=== PATIENT | male | born 1950 | race Caucasian/White ===

== ENCOUNTER 2020-08-20 13:06 | Emergency (ER) | payer MEDICARE ==
[2020-08-20 13:11] VITALS: BP 173/78; PULSE 87; RESP 20; TEMP 97.8
[2020-08-20] MEDS ORDERED: KETOROLAC 15 MG/ML 1 ML VIAL IM STA (13:58)
--- NOTE | 2020-08-20 14:31 | XR ---
Lumbar spine HISTORY: Pain 3 views of the lumbar spine Bone mineralization is reduced. Lumbar vertebral bodies show preserved height and near-anatomic align ment. Sclerosis is present in the posterior elements. Anterolisthesis grade 1 at L4-5. There is multi level spondylosis. Loss of disc height at intervertebral levels. I question some minimal depression o f the central superior endplate at L2. There are dense vascular calcifications present. IMPRESSION: Osteopenia, degenerative disc disease, facet arthropathy. Additional findings above.
--- NOTE | 2020-08-20 14:33 | XR ---
AP pelvis HISTORY: Chronic pain Single frontal view of the pelvis submitted Question increased density the right femoral head as compared to the left. There is some rotation how ever. Dense vascular calcifications are present. There is no fracture or dislocation. Joint spaces an d alignment are maintained. IMPRESSION: Findings may be technical involving the density of the femoral head, consider bone scan f or better evaluation as indicated.
--- NOTE | 2020-08-20 15:10 | ED ---
General Adult HPI - General Chief complaint: Extremity Injury, Lower Stated complaint: rt leg pain Time Seen by Provider: 08/20/20 13:18 Source: patient Mode of arrival: ambulatory Limitations: no limitations - History of Present Illness Initial comments: 69-year-old male with a past medical history of COPD, hypertension presents to the emergency room for a chief complaint of right leg pain. Patient reports that he has had right-sided low back pain on and off for several months. States it migrated into his groin and hip in the past 4 days. Patient states it has been painful to walk on. Patient states that flexing his hip and walking on the hip is what exacerbates his pain. States that lying flat alleviates his pain. Patient also admits to shooting pain at times down the right leg. Denies loss of sensation. He denies bladder or bowel changes, numbness or tingling of the groin or buttock, lower extremity weakness, or fevers. Patient reports he has not been taking anything for this pain.Patient has no other complaints at this time including shortness of breath, chest pain, abdominal pain, nausea or vomiting, headache, or visual changes. - Related Data Home Medications Medication Instructions Recorded Confirmed Clopidogrel [Plavix] 75 mg PO DAILY 04/09/15 08/20/20 lisinopriL 40 mg PO DAILY 04/09/15 08/20/20 Aspirin EC [Ecotrin Low Dose] 81 mg PO DAILY 08/20/20 08/20/20 Ergocalciferol [Vitamin D2 (1250 1,250 mcg PO MO 08/20/20 08/20/20 Mcg = 24052 Iu)] Allergies Allergy/AdvReac Type Severity Reaction Status Date / Time No Known Allergies Allergy Verified 08/20/20 14:26 Review of Systems ROS Statement: Those systems with pertinent positive or pertinent negative responses have been documented in the HPI. ROS Other: All systems not noted in ROS Statement are negative. Past Medical History Past Medical History: COPD, Hypertension History of Any Multi-Drug Resistant Organisms: None Reported Additional Past Surgical History / Comment(s): carpal tunel left, stent Past Psychological History: No Psychological Hx Reported Smoking Status: Current every day smoker Past Alcohol Use History: Heavy Past Drug Use History: None Reported General Exam Limitations: no limitations General appearance: alert, in no apparent distress Head exam: Present: atraumatic, normocephalic, normal inspection Eye exam: Present: normal appearance, PERRL, EOMI. Absent: scleral icterus, conjunctival injection, periorbital swelling ENT exam: Present: normal exam, mucous membranes moist Neck exam: Present: normal inspection, full ROM. Absent: tenderness, meningismus, lymphadenopathy Respiratory exam: Present: normal lung sounds bilaterally. Absent: respiratory distress, wheezes Cardiovascular Exam: Present: regular rate, normal rhythm, normal heart sounds. Absent: systolic murmur, diastolic murmur, rubs, gallop, clicks GI/Abdominal exam: Present: soft, normal bowel sounds. Absent: distended, tenderness, guarding, rebound, rigid Extremities exam: Present: full ROM (Pain with flexion of the right hip.), normal capillary refill (cap refill less than 2 seconds, DP pulse 2+ right lower extremity and equal bilaterally), other (Antalgic gait, patient limps on the right hip.). Absent: tenderness, joint swelling, calf tenderness (No edema erythema or increased warmth of the right leg. Negative Homans sign.) Course Vital Signs 08/20/20 13:07 Temperature 97.8 F Pulse Rate 87 Respiratory 20 Rate Blood Pressure 173/78 O2 Sat by Pulse 96 Oximetry Medical Decision Making - Medical Decision Making Vitals are stable. Patient is well-appearing. Patient is complaining of right hip pain. States the pain in his back has been going on for several months however it kind of migrated to his hip over the past several days. Movement and bearing weight worsen the pain. Patient states for flexion of the right hip also worsens the pain. Lying still alleviates the pain. Neurovascular status intact in the right lower leg. DP pulses 2+. Sensation intact. Capillary refill less than 2 seconds and equal bilaterally. She is were obtained. Lumbar spine did show degenerative changes. All of his exam did reveal density of the femoral head, recommending bone scan. Patient was given Toradol and did have significant improvement in symptoms. Recommended starting Motrin and Tylenol for inflammation and following up with orthopedics. Referral given. He will return here for any worsening symptoms. I discussed this case with attending Dr. Sung who agrees with this assessment and treatment plan. Disposition Clinical Impression: Right leg pain, Hip pain, right Disposition: HOME SELF-CARE Condition: Good Instructions (If sedation given, give patient instructions): Hip Pain (ED) Additional Instructions: Please take Motrin and Tylenol for pain. Please follow-up with orthopedics for a bone scan of the right hip and further evaluation. Return to the emergency room for any worsening symptoms. Is patient prescribed a controlled substance at d/c from ED?: No Referrals: Yana Hooks DO [Primary Care Provider] - 1-2 days Bridger Saxena DO [Doctor of Osteopathic Medicine] - 1-2 days Time of Disposition: 15:09
== END 2020-08-20 15:16 | disposition home or self-care (01) ==
LOC: EC 13:06
DX: M25.551 Pain in right hip (principal); M79.604 Pain in right leg; I10 Essential (primary) hypertension; F17.200 Nicotine dependence, unspecified, uncomplicated; Z79.899 Other long term (current) drug therapy
CPT/HCPCS: 72100; 72170; 99283; 96372; J1885

== ENCOUNTER → 2021-05-31 | Outpatient (CLI) | payer MEDICARE, BC ==
--- NOTE | 2021-05-31 10:47 | MR ---
EXAMINATION TYPE: MR lumbar spine wo/w con DATE OF EXAM: 05/31/2021 COMPARISON: NONE HISTORY: Chronic lower back pain. TECHNIQUE: T1 and T2 axial and sagittal, postcontrast T1 sagittal and axial images of the lumbar spi ne are submitted. CONTRAST: 6 mL gadolinium this FINDINGS: There is no abnormal signal seen within the visualized spinal cord or paraspinal soft tissu es. Diffuse heterogeneity marrow signal noted. Simple appearing right renal cyst incidentally noted. There is motion artifact limiting 0.1 cm indeterminate left adrenal At L1-2 there is suggestion vertebral body hemangioma at L2. There is moderate degenerative disc dise ase with posterior spondylosis circumferential disc bulging but no canal stenosis. Mild bilateral for aminal encroachment. At L2-3 there is moderate degenerative disc disease with broad-based central disc bulging and mild ef facement borderline central stenosis with mild bilateral foraminal encroachment. At L3-4 there is mild degenerative disc disease with diffuse disc bulging and hypertrophic changes of the facets and ligamentum flavum result In mild canal stenosis and bilateral foraminal encroachment greater on the right. Component of the di sc bulging extending laterally to the right is suggested At L4-5 there is degenerative disc disease with facet arthropathy. Broad-based disc bulging with mild bilateral foraminal encroachment and borderline central At L5-S1 there is degenerative disc disease with very mild central disc bulging and annular tear but no focal herniation. Mild bilateral foraminal encroachment but no Canal stenosis. IMPRESSION: 1. Multilevel moderate degenerative disc disease with multilevel disc bulging result in multilevel selvin rderline to mild canal stenosis and bilateral foraminal encroachment. 2. Nonspecific heterogeneous marrow signal again be related to marrow reconversion, osteopenia, or mu ch less likely space-occupying bone marrow disease such as lymphoproliferative disorder. Correlate cl inically 3. Indeterminate 1.1 cm left adrenal nodule most likely related to incidental benign adrenal adenoma consider follow-up [address] of the abdomen.
== END | disposition home or self-care (01) ==
LOC: RADMRIMAIN 07:36
PROVIDERS: ATTEND Internal Medicine
DX: M51.26 Other intervertebral disc displacement, lumbar region (principal); M51.36 Other intervertebral disc degeneration, lumbar region; M48.061 Spinal stenosis, lumbar region without neurogenic claudication
CPT/HCPCS: 72158; A9585

== ENCOUNTER → 2022-12-17 | Outpatient (CLI) | payer MEDICARE, BC ==
--- NOTE | 2022-12-17 22:20 | CTL ---
EXAMINATION TYPE: CT Low Dose Lung DATE OF EXAM ORDERED: 12/17/2022 HISTORY: 72-year-old male Z87.891 PERSONAL HISTORY OF NICOTINE DEPENDENCE. Current smoker with 25. Shwetha ng cancer screening CT DLP: 55.[address] CTDI: 1.3 mGy Automated exposure control for dose reduction was used. SCREENING VISIT: Baseline COMPARISON: Radiographs 11/27/2022 TECHNIQUE: Low dose computed tomography scan was performed through the chest at coronal and sagittal reconstructions. CT DIAGNOSTIC QUALITY: Satisfactory FINDINGS: The heart is normal size without pericardial effusion. Three-vessel coronary artery calcifications ar e present in the remarkable for coronary artery disease. Mild to moderate atherosclerotic arch calcifications. Possible variant takeoff of the left vertebral artery directly from the aortic arch. Lack of IV contrast limits assessment. Border line caliber right and left pulmonary arteries measuring up to 2.5 cm suggesting underlying pu lmonary arterial hypertension. No thoracic lymphadenopathy by CT size criteria. Patchy pleural parenchymal opacities posterior lung bases. Mild to moderate diffuse bronchial wall th ickening. Additional scattered bandlike areas of scarring and patchy pleural-parenchymal opacity, lik natividad additional scarring suggested in the posterior left upper to midlung. There is moderate underlying emphysema. A staple line courses down the medial right upper lobe from p rior wedge resection. Some more nodular areas are present, for example, subpleural region posterior right lower lobe measur ing 1.4 cm axial image 273. Posterior left lower lobe axial image 318 measuring 8 mm. Similar subpleural density measuring 8 mm just adjacent, axial image 307. Visualized upper abdomen shows additional moderate atherosclerotic calcifications of the abdominal ao rta. Bones: No osseous destructive process. IMPRESSION: 1. LungRADS 3, probably benign, scattered areas of pleural parenchymal scarring. Some of these opacit ies have a more nodular configuration measuring up to 1.4 cm. Other areas are more confluent and shou ld also be reassessed at follow-up to assess for potential scar and exclude infiltrate or chronic cau ses of airspace disease. 2. COPD with moderate emphysema and pulmonary arterial hypertension. Recommend smoking cessation. 3. CAD with three-vessel coronary artery calcifications. CT LUNG RAD AND CT CHEST RECOMMENDATION: Lung-Rad 3 Probably Benign: 6 month follow-up LDCT. S Modifier (other clinically significant findings): None
== END | disposition home or self-care (01) ==
LOC: RADCTMAIN 12:09
PROVIDERS: ATTEND Internal Medicine Critical Care Medicine
DX: Z12.2 Encounter for screening for malignant neoplasm of respiratory organs (principal); J43.9 Emphysema, unspecified; I27.21 Secondary pulmonary arterial hypertension; I25.10 Atherosclerotic heart disease of native coronary artery without angina pectoris; I25.84 Coronary atherosclerosis due to calcified coronary lesion; F17.210 Nicotine dependence, cigarettes, uncomplicated
CPT/HCPCS: 71271